=== PATIENT | female | born 1990 | race Two or more races ===

== ENCOUNTER 2018-10-04 16:46 | Emergency (ER) | payer OTHER ==
[~2018-10-04] VITALS: Ht 152.4 cm; Wt 65.8 kg
[~2018-10-04 16:46] MED LIST: NORFLEX100MG PO
== END 2018-10-04 21:43 | disposition home or self-care (01) ==
LOC: ER 16:46
DX: S01.81XA Laceration without foreign body of other part of head, initial encounter (principal); W18.39XA Other fall on same level, initial encounter; Y93.89 Activity, other specified; Y92.69 Other specified industrial and construction area as the place of occurrence of the external cause; Y99.8 Other external cause status